=== PATIENT | male | born 1985 | race Caucasian/White ===

== ENCOUNTER 2023-03-17 07:25 | Outpatient (CLI) | payer OTHER | END 2023-03-17 07:34 | disposition home or self-care (01) | LOC: RAD 07:25 | PROVIDERS: ATTEND Urology | DX: N20.0 Calculus of kidney (principal) ==

== ENCOUNTER 2024-08-11 08:41 | Outpatient (CLI) | payer OTHER | END 2024-08-11 08:49 | disposition home or self-care (01) | LOC: RAD 08:41 | PROVIDERS: ATTEND Urology | DX: N20.0 Calculus of kidney (principal) ==